=== PATIENT | male | born 1935 | race Caucasian/White ===

== ENCOUNTER 2021-07-09 10:25 | Emergency (ER) | payer MEDICARE ==
[~2021-07-09] VITALS: Ht 180.3 cm; Wt 81.8 kg
[~2021-07-09 10:25] MED LIST: AMOX500T PO; ANTACHW5 PO; ASPI81TA7 PO; BISAC5TA PO; COUM7.5T PO; GAS180CA7 PO; LASI40TA PO; PROT1TAB2 PO; TYLE325T5 PO; ZEST2.5T3 PO
[2021-07-09] MEDS ORDERED: WARF-23 (10:36)
[2021-07-09] MEDS ORDERED: CARV6.25 (10:36)
[2021-07-09] MEDS ORDERED: PRED20TA PO (13:49)
[2021-07-09 14:16] VITALS: BP 140/96
== END 2021-07-09 14:40 | disposition home or self-care (01) ==
LOC: M ED 10:25 → EDBD 10:25 → M ED 14:40
DX: I82.502 Chronic embolism and thrombosis of unspecified deep veins of left lower extremity (principal); I50.9 Heart failure, unspecified; F33.9 Major depressive disorder, recurrent, unspecified; K21.9 Gastro-esophageal reflux disease without esophagitis; Z86.711 Personal history of pulmonary embolism; Z79.899 Other long term (current) drug therapy; Z79.01 Long term (current) use of anticoagulants

== ENCOUNTER 2021-08-28 10:15 | Emergency (ER) | payer MEDICARE ==
[~2021-08-28] VITALS: Ht 180.3 cm; Wt 81.8 kg
[~2021-08-28 10:15] MED LIST changes: +CARV6.25; +PRED20TA PO; +WARF-23
[2021-08-28] MEDS ORDERED: FURO40TA2 (10:39)
[2021-08-28] MEDS ORDERED: ACETAMINOPHEN TAB 650MG DOSE (2X325MG) PO ONE (15:15)
[2021-08-28 18:11] VITALS: BP 116/70
== END 2021-08-28 18:36 | disposition home or self-care (01) ==
LOC: M ED 10:15
DX: I82.5Z2 Chronic embolism and thrombosis of unspecified deep veins of left distal lower extremity (principal); I73.9 Peripheral vascular disease, unspecified; Z86.711 Personal history of pulmonary embolism; Z79.899 Other long term (current) drug therapy; Z79.01 Long term (current) use of anticoagulants

== ENCOUNTER 2021-09-13 16:22 | Inpatient (IN) | payer MEDICARE ==
[~2021-09-13] VITALS: Ht 180.3 cm; Wt 90.5 kg
[~2021-09-13 16:22] MED LIST changes: -CARV6.25; +CARV6.25 PO; +FURO40TA2 PO; -WARF-23; +WARF-23 PO
[2021-09-13] MEDS ORDERED: NS 2,520 ML in IV 1 EA IV ONE (16:55)
[2021-09-13 17:24] LABS: BASO % 0.2 % (0.0-1.0); EOS # 0.1 10^3/uL (0.0-0.5); EOS % 0.3 % (0.0-3.0); HEMATOCRIT 38.3 % (42.0-52.0); HEMOGLOBIN 12.3 g/dl (13.5-17.5); LYMPH # 0.4 10^3/uL (1.5-5.0); LYMPH % 1.7 % (24.0-44.0); MEAN CORPUSCULAR HEMOGLOBIN 29.7 pg (27.0-33.0); MEAN CORPUSCULAR HGB CONC 32.1 g/dl (32.0-36.5); MEAN CORPUSCULAR VOLUME 92.5 fl (80.0-96.0); MONO # 1.5 10^3/uL (0.0-0.8); MONO % 5.8 % (2.0-8.0); NEUTROPHILS # 23.9 10^3/uL (1.5-8.5); NEUTROPHILS % 91.2 % (36.0-66.0); PLATELET COUNT, AUTOMATED 184 10^3/uL (150-450); RED BLOOD COUNT 4.14 10^6/uL (4.30-6.10); WHITE BLOOD COUNT 26.2 10^3/uL (4.0-10.0)
[2021-09-13] MEDS: COMBIVENT RESPIMAT 100-20MCG INHALER 4GM INH SCH ×3 (17:25→17:50)
[2021-09-13 17:48] LABS: ABG BASE EXCESS 5.2 (-2.0-2.0); ABG HCO3 28.3 MEQ/L (22.0-26.0); ABG O2 SATURATION 97.4 % (95.0-99.0); ABG PARTIAL PRESSURE CO2 36.5 mmHg (35.0-45.0); ABG PARTIAL PRESSURE O2 89.3 mmHg (75.0-100.0); ABG STANDARD HCO3 29.2 MEQ/L (22.0-26.0); ABG TOTAL CO2 29.5 MEQ/L (23.0-31.0); ABG pH (ARTERIAL) 7.508 UNITS (7.350-7.450)
[2021-09-13 17:52] LABS: CK-MB VALUE MASS 1.2 NG/ML (<3.6); MB/CK RELATIVE INDEX 3.64 (< OR =4)
[2021-09-13 17:58] LABS: ALBUMIN 2.6 GM/DL (3.2-5.2); BILIRUBIN,DIRECT 1.4 MG/DL (0.0-0.2); BILIRUBIN,TOTAL 3.2 MG/DL (0.2-1.0); THYROID STIMULATING HORMONE 3.56 uIU/ML (0.358-3.740); THYROXINE (T4) 6.4 UG/DL (4.5-12.0); TOTAL PROTEIN 5.7 GM/DL (6.4-8.2)
[2021-09-13] MEDS ORDERED: cefTRIAXone SOD 2 GM in D5W MINI-BAG PLUS 50 ML IV ONE (18:00)
[2021-09-13 18:10] LABS: RSV AMPLIFICATION NEGATIVE (NEGATIVE)
[2021-09-13] MEDS ORDERED: dexameTHASONE 20MG/5ML VIAL (J1100 PER 1MG) IV ONE (18:25)
[2021-09-13 19:11] LABS: CK-MB VALUE MASS < 1.0 NG/ML (<3.6); CPK CREATINE PHOSPHOKINASE 639 U/L (39-308); MB/CK RELATIVE INDEX 0.16 (< OR =4)
[2021-09-13] MEDS ORDERED: WARF-23 PO (19:34)
[2021-09-13] MEDS ORDERED: HOME MED LIST COMPLETE! XX SCH (19:35)
[2021-09-13] MEDS ORDERED: ENOXAPARIN 100MG/1ML SYRINGE (J1650 PER 10MG) SC SCH (20:40)
[2021-09-13] MEDS ORDERED: DOXYCYCLINE HYCLATE 100MG TABLET PO SCH (21:00)
[2021-09-13 22:30] VITALS: BP 108/57; O2SAT 95
[2021-09-13] MEDS: CARVedilol 6.25 MG TAB PO SCH (22:47)
[2021-09-14] VITALS (13 sets, daily range): BP systolic 84–140; BP diastolic 52–78; O2SAT 93–98
[2021-09-14] MEDS ORDERED: REMDESIVIR 200 MG in NS 250 ML IV ONE ×2
[2021-09-14] MEDS ORDERED: REMDESIVIR 100 MG in NS 250 ML IV SCH ×2
[2021-09-14] MEDS: guaiFENesin 200 MG TAB PO SCH ×4 (00:10→12:07)
[2021-09-14 01:02] LABS: CREATININE FOR GFR 1.5 MG/DL (0.70-1.30)
[2021-09-14 01:11] LABS: CK-MB VALUE MASS 1.1 NG/ML (<3.6); MB/CK RELATIVE INDEX 4.07 (< OR =4)
[2021-09-14 01:19] LABS: ALBUMIN 2.1 GM/DL (3.2-5.2); BILIRUBIN,DIRECT 1.2 MG/DL (0.0-0.2); BILIRUBIN,TOTAL 2.1 MG/DL (0.2-1.0); C REACTIVE PROTEIN QUANTITATIV 15.3 MG/DL (0.00-0.30); CALCIUM LEVEL 7.3 MG/DL (8.8-10.2); CREATININE FOR GFR 1.48 MG/DL (0.70-1.30); GLOMERULAR FILTRATION RATE 47.8 (>35); POTASSIUM SERUM 3.7 MEQ/L (3.5-5.1); TOTAL PROTEIN 4.6 GM/DL (6.4-8.2)
[2021-09-14 01:20] LABS: PARTIAL THROMBOPLASTIN TIME 111.8 SECONDS (25.9-37.0)
[2021-09-14 01:50] LABS: PROTHROMBIN TIME 67.2 SECONDS (12.7-14.5)
[2021-09-14 01:52] LABS: D-DIMER QUANT 524.37 ng/ml (<500)
[2021-09-14] MEDS ORDERED: SODIUM CHLORIDE 0.9% INJ 10 ML SYR IV ONE (02:00)
[2021-09-14 02:04] LABS: INR 8.1
[2021-09-14] MEDS ORDERED: PHYTONADIONE 5 MG TAB PO ONE (03:00)
[2021-09-14] MEDS: COMBIVENT RESPIMAT 100-20MCG INHALER 4GM INH SCH ×3 (08:00→19:23)
[2021-09-14] MEDS ORDERED: ALBUTEROL 90 MCG/ACT 8GM HFA INHALER INH PRN (08:20)
[2021-09-14] MEDS ORDERED: methylPREDNISolone 125MG 2ML VIAL IV ONE (08:20)
[2021-09-14] MEDS ORDERED: FUROSEMIDE 40MG/4ML VIAL (J1940) IV ONE (08:20)
[2021-09-14] MEDS: AZITHROMYCIN INJ 500 MG, VIAL MATE ADAPTER 1 EACH in NS 250 ML IV SCH (08:35)
[2021-09-14] MEDS: CARVedilol 6.25 MG TAB PO SCH ×2 (08:37→20:53)
[2021-09-14 08:56] LABS: BILIRUBIN,TOTAL 1.4 MG/DL (0.2-1.0); CALCIUM LEVEL 7.8 MG/DL (8.8-10.2); CREATININE FOR GFR 1.25 MG/DL (0.70-1.30); POTASSIUM SERUM 3.7 MEQ/L (3.5-5.1); TOTAL PROTEIN 4.6 GM/DL (6.4-8.2)
[2021-09-14] MEDS ORDERED: dexameTHASONE 4 MG/ML 1ML VIAL (J1100 PER 1MG) IV SCH (09:00)
[2021-09-14] MEDS ORDERED: DOXYCYCLINE HYCLATE 100MG TABLET PO SCH (09:00)
[2021-09-14] MEDS ORDERED: BARICITINIB 2MG TABLET (OLUMIANT) FOR EUA PO SCH ×2 (09:00)
[2021-09-14] MEDS ORDERED: FUROSEMIDE 40 MG TAB PO SCH (09:00)
[2021-09-14 09:35] LABS: HEMATOCRIT 37.1 % (42.0-52.0); HEMOGLOBIN 11.8 g/dl (13.5-17.5); LYMPH # 0.6 10^3/uL (1.5-5.0); LYMPH % 5.5 % (24.0-44.0); MEAN CORPUSCULAR HEMOGLOBIN 29.5 pg (27.0-33.0); MEAN CORPUSCULAR HGB CONC 31.8 g/dl (32.0-36.5); MEAN CORPUSCULAR VOLUME 92.8 fl (80.0-96.0); MONO # 0.4 10^3/uL (0.0-0.8); MONO % 3.5 % (2.0-8.0); NEUTROPHILS # 10.5 10^3/uL (1.5-8.5); NEUTROPHILS % 90.6 % (36.0-66.0); PLATELET COUNT, AUTOMATED 166 10^3/uL (150-450); WHITE BLOOD COUNT 11.6 10^3/uL (4.0-10.0)
[2021-09-14] MEDS: BARICITINIB 2MG TABLET (OLUMIANT) FOR EUA PO SCH (09:41)
[2021-09-14 10:03] LABS: PROTHROMBIN TIME 60.8 SECONDS (12.7-14.5)
[2021-09-14 10:13] LABS: INR 7.11
[2021-09-14] MEDS ORDERED: FUROSEMIDE 40MG/4ML VIAL (J1940) IV SCH (17:00)
[2021-09-14] MEDS ORDERED: WARFARIN SOD 2.5MG TAB PO SCH (17:00)
[2021-09-14] MEDS: methylPREDNISolone 125MG 2ML VIAL IV SCH (17:21)
[2021-09-14] MEDS: cefTRIAXone SOD 1 GM in D5W MINI-BAG PLUS 50 ML IV SCH (17:21)
[2021-09-14] MEDS ORDERED: cefTRIAXone SOD 1 GM in D5W MINI-BAG PLUS 50 ML IV SCH (18:00)
[2021-09-14 19:18] LABS: BILIRUBIN,DIRECT 0.6 MG/DL (0.0-0.2); MAGNESIUM LEVEL 1.9 MG/DL (1.8-2.4)
[2021-09-14] MEDS: guaiFENesin ER 600 MG TAB PO SCH (20:59)
[2021-09-14] MEDS ORDERED: SODIUM CHLORIDE 0.9% 1000ML IV ONE (21:20)
[2021-09-15] VITALS (24 sets, daily range): BP systolic 106–142; BP diastolic 63–80; O2SAT 90–99
[2021-09-15] MEDS: methylPREDNISolone 125MG 2ML VIAL IV SCH ×3 (00:24→17:06)
[2021-09-15] MEDS: REMDESIVIR 100 MG in NS 250 ML IV SCH (02:08)
[2021-09-15] MEDS: COMBIVENT RESPIMAT 100-20MCG INHALER 4GM INH SCH ×4 (02:56→20:04)
[2021-09-15] MEDS: SODIUM CHLORIDE 0.9% INJ 10 ML SYR IV SCH (04:21)
[2021-09-15 08:02] LABS: BASO % 0.1 % (0.0-1.0); HEMATOCRIT 38.1 % (42.0-52.0); HEMOGLOBIN 12.1 g/dl (13.5-17.5); LYMPH # 0.7 10^3/uL (1.5-5.0); LYMPH % 4.6 % (24.0-44.0); MEAN CORPUSCULAR HEMOGLOBIN 29.7 pg (27.0-33.0); MEAN CORPUSCULAR HGB CONC 31.8 g/dl (32.0-36.5); MEAN CORPUSCULAR VOLUME 93.6 fl (80.0-96.0); MONO # 0.4 10^3/uL (0.0-0.8); NEUTROPHILS # 13.5 10^3/uL (1.5-8.5); NEUTROPHILS % 91.6 % (36.0-66.0); PLATELET COUNT, AUTOMATED 160 10^3/uL (150-450); RED BLOOD COUNT 4.07 10^6/uL (4.30-6.10); WHITE BLOOD COUNT 14.7 10^3/uL (4.0-10.0)
[2021-09-15] MEDS: guaiFENesin ER 600 MG TAB PO SCH ×2 (08:19→21:38)
[2021-09-15] MEDS: BARICITINIB 2MG TABLET (OLUMIANT) FOR EUA PO SCH (08:19)
[2021-09-15] MEDS: AZITHROMYCIN INJ 500 MG, VIAL MATE ADAPTER 1 EACH in NS 250 ML IV SCH (08:20)
[2021-09-15 08:35] LABS: ALBUMIN 2.3 GM/DL (3.2-5.2); BILIRUBIN,DIRECT 0.6 MG/DL (0.0-0.2); BILIRUBIN,TOTAL 1.1 MG/DL (0.2-1.0); CALCIUM LEVEL 8.1 MG/DL (8.8-10.2); CREATININE FOR GFR 1.48 MG/DL (0.70-1.30); GLOMERULAR FILTRATION RATE 47.8 (>35); MAGNESIUM LEVEL 2.1 MG/DL (1.8-2.4); POTASSIUM SERUM 3.8 MEQ/L (3.5-5.1); TOTAL PROTEIN 5.3 GM/DL (6.4-8.2)
[2021-09-15 08:43] LABS: INR 3.19
[2021-09-15 08:44] LABS: PARTIAL THROMBOPLASTIN TIME 61.9 SECONDS (25.9-37.0)
[2021-09-15] MEDS: cefTRIAXone SOD 1 GM in D5W MINI-BAG PLUS 50 ML IV SCH (17:06)
[2021-09-16] VITALS (16 sets, daily range): BP systolic 110–133; BP diastolic 75–88; O2SAT 93–97
[2021-09-16] MEDS: methylPREDNISolone 125MG 2ML VIAL IV SCH ×3 (00:46→17:14)
[2021-09-16] MEDS: REMDESIVIR 100 MG in NS 250 ML IV SCH (00:46)
[2021-09-16] MEDS: COMBIVENT RESPIMAT 100-20MCG INHALER 4GM INH SCH ×4 (02:00→19:58)
[2021-09-16] MEDS: SODIUM CHLORIDE 0.9% INJ 10 ML SYR IV SCH (02:40)
[2021-09-16 07:33] LABS: BASO % 0.2 % (0.0-1.0); HEMATOCRIT 34.6 % (42.0-52.0); HEMOGLOBIN 11.1 g/dl (13.5-17.5); LYMPH # 0.6 10^3/uL (1.5-5.0); MEAN CORPUSCULAR HEMOGLOBIN 29.4 pg (27.0-33.0); MEAN CORPUSCULAR HGB CONC 32.1 g/dl (32.0-36.5); MEAN CORPUSCULAR VOLUME 91.8 fl (80.0-96.0); MONO # 0.3 10^3/uL (0.0-0.8); MONO % 2.6 % (2.0-8.0); NEUTROPHILS # 11.1 10^3/uL (1.5-8.5); NEUTROPHILS % 91.5 % (36.0-66.0); PLATELET COUNT, AUTOMATED 210 10^3/uL (150-450); RED BLOOD COUNT 3.77 10^6/uL (4.30-6.10); WHITE BLOOD COUNT 12.1 10^3/uL (4.0-10.0)
[2021-09-16 07:41] LABS: INR 2.67; PROTHROMBIN TIME 28.8 SECONDS (12.7-14.5)
[2021-09-16 07:57] LABS: BILIRUBIN,TOTAL 0.9 MG/DL (0.2-1.0); CALCIUM LEVEL 7.8 MG/DL (8.8-10.2); CREATININE FOR GFR 1.58 MG/DL (0.70-1.30); GLOMERULAR FILTRATION RATE 44.3 (>35); MAGNESIUM LEVEL 2.3 MG/DL (1.8-2.4); POTASSIUM SERUM 3.8 MEQ/L (3.5-5.1)
[2021-09-16] MEDS: BARICITINIB 2MG TABLET (OLUMIANT) FOR EUA PO SCH (09:28)
[2021-09-16] MEDS: guaiFENesin ER 600 MG TAB PO SCH ×2 (09:28→20:02)
[2021-09-16] MEDS: AZITHROMYCIN INJ 500 MG, VIAL MATE ADAPTER 1 EACH in NS 250 ML IV SCH (09:29)
[2021-09-16] MEDS ORDERED: FUROSEMIDE 40MG/4ML VIAL (J1940) IV SCH (17:00)
[2021-09-16] MEDS: cefTRIAXone SOD 1 GM in D5W MINI-BAG PLUS 50 ML IV SCH (17:13)
[2021-09-16] MEDS: WARFARIN SOD 3MG TAB PO SCH (20:02)
[2021-09-17] VITALS (11 sets, daily range): BP systolic 108–140; BP diastolic 72–88; O2SAT 89–94
[2021-09-17] MEDS: REMDESIVIR 100 MG in NS 250 ML IV SCH (01:05)
[2021-09-17] MEDS: methylPREDNISolone 125MG 2ML VIAL IV SCH ×3 (01:09→17:14)
[2021-09-17] MEDS: COMBIVENT RESPIMAT 100-20MCG INHALER 4GM INH SCH ×4 (01:11→19:42)
[2021-09-17] MEDS: SODIUM CHLORIDE 0.9% INJ 10 ML SYR IV SCH (02:49)
[2021-09-17 06:44] LABS: BASO % 0.1 % (0.0-1.0); HEMATOCRIT 35.1 % (42.0-52.0); HEMOGLOBIN 11.6 g/dl (13.5-17.5); LYMPH # 0.5 10^3/uL (1.5-5.0); MEAN CORPUSCULAR HEMOGLOBIN 30.3 pg (27.0-33.0); MEAN CORPUSCULAR VOLUME 91.6 fl (80.0-96.0); MONO # 0.3 10^3/uL (0.0-0.8); MONO % 3.4 % (2.0-8.0); NEUTROPHILS # 8.6 10^3/uL (1.5-8.5); NEUTROPHILS % 90.6 % (36.0-66.0); PLATELET COUNT, AUTOMATED 222 10^3/uL (150-450); RED BLOOD COUNT 3.83 10^6/uL (4.30-6.10); WHITE BLOOD COUNT 9.5 10^3/uL (4.0-10.0)
[2021-09-17 06:55] LABS: INR 2.53; PROTHROMBIN TIME 27.6 SECONDS (12.7-14.5)
[2021-09-17 07:13] LABS: BILIRUBIN,DIRECT 0.3 MG/DL (0.0-0.2); CALCIUM LEVEL 7.8 MG/DL (8.8-10.2); CREATININE FOR GFR 1.53 MG/DL (0.70-1.30); MAGNESIUM LEVEL 2.3 MG/DL (1.8-2.4); POTASSIUM SERUM 3.8 MEQ/L (3.5-5.1); TOTAL PROTEIN 5.1 GM/DL (6.4-8.2)
[2021-09-17] MEDS: FUROSEMIDE 100MG/10ML VIAL (J1940) IV SCH ×2 (08:58→17:14)
[2021-09-17] MEDS: BARICITINIB 2MG TABLET (OLUMIANT) FOR EUA PO SCH (09:00)
[2021-09-17] MEDS: AZITHROMYCIN INJ 500 MG, VIAL MATE ADAPTER 1 EACH in NS 250 ML IV SCH (09:00)
[2021-09-17] MEDS: guaiFENesin ER 600 MG TAB PO SCH ×2 (09:00→19:48)
[2021-09-17] MEDS: cefTRIAXone SOD 1 GM in D5W MINI-BAG PLUS 50 ML IV SCH (17:17)
[2021-09-17] MEDS: WARFARIN SOD 3MG TAB PO SCH (17:17)
[2021-09-17] MEDS: TAMSULOSIN 0.4 MG CAP PO SCH (19:47)
[2021-09-17 21:07] LABS: BODY FLUID CULTURE Not indicated. (.); LEGIONELLA ANTIGEN URINE Negative (Negative); ORGANISM ID Not indicated. (.); SPECIMEN SOURCE Urine (.); URINE STREP PNEUMONIAE ANTIGEN Negative (Negative)
[2021-09-18] VITALS: BP 113/73
[2021-09-18] MEDS: methylPREDNISolone 125MG 2ML VIAL IV SCH ×3 (00:42→16:46)
[2021-09-18] MEDS: REMDESIVIR 100 MG in NS 250 ML IV SCH (00:43)
[2021-09-18] MEDS: COMBIVENT RESPIMAT 100-20MCG INHALER 4GM INH SCH ×4 (01:04→19:27)
[2021-09-18 03:59] VITALS: BP 121/94
[2021-09-18 08:00] VITALS: BP 134/91
[2021-09-18] MEDS: guaiFENesin ER 600 MG TAB PO SCH ×2 (08:48→19:34)
[2021-09-18] MEDS: FUROSEMIDE 100MG/10ML VIAL (J1940) IV SCH ×2 (08:49→16:46)
[2021-09-18] MEDS: AZITHROMYCIN INJ 500 MG, VIAL MATE ADAPTER 1 EACH in NS 250 ML IV SCH (08:49)
[2021-09-18] MEDS: BARICITINIB 2MG TABLET (OLUMIANT) FOR EUA PO SCH (08:49)
[2021-09-18 09:25] LABS: BASO % 0.2 % (0.0-1.0); HEMATOCRIT 38.5 % (42.0-52.0); HEMOGLOBIN 12.5 g/dl (13.5-17.5); LYMPH # 0.5 10^3/uL (1.5-5.0); LYMPH % 5.2 % (24.0-44.0); MEAN CORPUSCULAR HEMOGLOBIN 29.7 pg (27.0-33.0); MEAN CORPUSCULAR HGB CONC 32.5 g/dl (32.0-36.5); MEAN CORPUSCULAR VOLUME 91.4 fl (80.0-96.0); MONO # 0.4 10^3/uL (0.0-0.8); MONO % 3.5 % (2.0-8.0); NEUTROPHILS # 9.1 10^3/uL (1.5-8.5); NEUTROPHILS % 89.9 % (36.0-66.0); PLATELET COUNT, AUTOMATED 253 10^3/uL (150-450); RED BLOOD COUNT 4.21 10^6/uL (4.30-6.10); WHITE BLOOD COUNT 10.1 10^3/uL (4.0-10.0)
[2021-09-18 09:35] LABS: INR 2.77; PROTHROMBIN TIME 29.6 SECONDS (12.7-14.5)
[2021-09-18 09:49] LABS: ALBUMIN 2.4 GM/DL (3.2-5.2); BILIRUBIN,TOTAL 0.8 MG/DL (0.2-1.0); CALCIUM LEVEL 8.3 MG/DL (8.8-10.2); CREATININE FOR GFR 1.5 MG/DL (0.70-1.30); POTASSIUM SERUM 3.8 MEQ/L (3.5-5.1); TOTAL PROTEIN 5.6 GM/DL (6.4-8.2)
[2021-09-18 11:59] VITALS: BP 107/58
[2021-09-18] MEDS: DOXYCYCLINE HYCLATE 100MG TABLET PO SCH ×2 (14:41→19:34)
[2021-09-18] MEDS: CEFDINIR 300 MG CAP (OMNICEF) PO SCH ×2 (14:41→19:34)
[2021-09-18 16:00] VITALS: BP 113/72
[2021-09-18] MEDS: WARFARIN SOD 3MG TAB PO SCH (16:45)
[2021-09-18] MEDS ORDERED: WARFARIN SOD 5MG TAB PO SCH (17:00)
[2021-09-18] MEDS: TAMSULOSIN 0.4 MG CAP PO SCH (19:34)
[2021-09-18 20:00] VITALS: BP 106/75
[2021-09-19 00:39] VITALS: BP 109/78
[2021-09-19] MEDS: methylPREDNISolone 125MG 2ML VIAL IV SCH ×4 (00:39→23:19)
[2021-09-19] MEDS: COMBIVENT RESPIMAT 100-20MCG INHALER 4GM INH SCH ×4 (00:50→19:25)
[2021-09-19 04:00] VITALS: BP 116/78
[2021-09-19 06:02] LABS: ALBUMIN 2.2 GM/DL (3.2-5.2); BILIRUBIN,DIRECT 0.4 MG/DL (0.0-0.2); BILIRUBIN,TOTAL 0.9 MG/DL (0.2-1.0); TOTAL PROTEIN 4.8 GM/DL (6.4-8.2)
[2021-09-19 08:00] VITALS: BP 125/82
[2021-09-19 08:14] LABS: BASO % 0.1 % (0.0-1.0); HEMATOCRIT 36.5 % (42.0-52.0); HEMOGLOBIN 12.2 g/dl (13.5-17.5); LYMPH # 0.4 10^3/uL (1.5-5.0); LYMPH % 4.6 % (24.0-44.0); MEAN CORPUSCULAR HEMOGLOBIN 29.8 pg (27.0-33.0); MEAN CORPUSCULAR HGB CONC 33.4 g/dl (32.0-36.5); MONO # 0.2 10^3/uL (0.0-0.8); MONO % 2.6 % (2.0-8.0); NEUTROPHILS # 8.3 10^3/uL (1.5-8.5); NEUTROPHILS % 91.1 % (36.0-66.0); PLATELET COUNT, AUTOMATED 221 10^3/uL (150-450); WHITE BLOOD COUNT 9.1 10^3/uL (4.0-10.0)
[2021-09-19 08:54] LABS: CALCIUM LEVEL 7.9 MG/DL (8.8-10.2); CREATININE FOR GFR 1.42 MG/DL (0.70-1.30); GLOMERULAR FILTRATION RATE 50.1 (>35); MAGNESIUM LEVEL 2.2 MG/DL (1.8-2.4); POTASSIUM SERUM 4.1 MEQ/L (3.5-5.1)
[2021-09-19] MEDS: FUROSEMIDE 100MG/10ML VIAL (J1940) IV SCH ×2 (09:58→16:54)
[2021-09-19] MEDS: guaiFENesin ER 600 MG TAB PO SCH ×2 (09:59→20:04)
[2021-09-19] MEDS: CEFDINIR 300 MG CAP (OMNICEF) PO SCH ×2 (09:59→20:04)
[2021-09-19] MEDS: BARICITINIB 2MG TABLET (OLUMIANT) FOR EUA PO SCH (09:59)
[2021-09-19] MEDS: DOXYCYCLINE HYCLATE 100MG TABLET PO SCH ×2 (09:59→20:04)
[2021-09-19 12:00] VITALS: BP 102/75
[2021-09-19 16:00] VITALS: BP 104/74
[2021-09-19] MEDS: WARFARIN SOD 3MG TAB PO SCH (16:55)
[2021-09-19] MEDS: TAMSULOSIN 0.4 MG CAP PO SCH (20:04)
[2021-09-19 22:00] VITALS: BP 96/66
[2021-09-20] VITALS (7 sets, daily range): BP systolic 104–143; BP diastolic 60–89
[2021-09-20] MEDS: COMBIVENT RESPIMAT 100-20MCG INHALER 4GM INH SCH ×4 (02:00→19:37)
[2021-09-20 06:20] LABS: HEMOGLOBIN 12.3 g/dl (13.5-17.5); MEAN CORPUSCULAR HEMOGLOBIN 29.6 pg (27.0-33.0); MEAN CORPUSCULAR HGB CONC 33.2 g/dl (32.0-36.5); MEAN CORPUSCULAR VOLUME 88.9 fl (80.0-96.0); PLATELET COUNT, AUTOMATED 231 10^3/uL (150-450); RED BLOOD COUNT 4.16 10^6/uL (4.30-6.10)
[2021-09-20 06:38] LABS: CALCIUM LEVEL 7.7 MG/DL (8.8-10.2); CREATININE FOR GFR 1.59 MG/DL (0.70-1.30); POTASSIUM SERUM 4.2 MEQ/L (3.5-5.1)
[2021-09-20] MEDS: methylPREDNISolone 125MG 2ML VIAL IV SCH ×3 (08:45→23:59)
[2021-09-20] MEDS: guaiFENesin ER 600 MG TAB PO SCH ×2 (08:45→20:40)
[2021-09-20] MEDS: BARICITINIB 2MG TABLET (OLUMIANT) FOR EUA PO SCH (08:45)
[2021-09-20] MEDS: CEFDINIR 300 MG CAP (OMNICEF) PO SCH ×2 (08:45→20:40)
[2021-09-20] MEDS: DOXYCYCLINE HYCLATE 100MG TABLET PO SCH ×2 (08:46→20:40)
[2021-09-20] MEDS: FUROSEMIDE 100MG/10ML VIAL (J1940) IV SCH (08:47)
[2021-09-20] MEDS: FUROSEMIDE 40MG/4ML VIAL (J1940) IV SCH (16:45)
[2021-09-20] MEDS: WARFARIN SOD 3MG TAB PO SCH (16:46)
[2021-09-20] MEDS: TAMSULOSIN 0.4 MG CAP PO SCH (20:40)
[2021-09-21] MEDS: COMBIVENT RESPIMAT 100-20MCG INHALER 4GM INH SCH ×4 (01:26→19:25)
[2021-09-21 02:36] VITALS: O2SAT 95
[2021-09-21 04:45] VITALS: BP 108/62
[2021-09-21] MEDS: methylPREDNISolone 125MG 2ML VIAL IV SCH ×2 (09:00→16:29)
[2021-09-21] MEDS: guaiFENesin ER 600 MG TAB PO SCH ×2 (09:00→20:31)
[2021-09-21] MEDS: BARICITINIB 2MG TABLET (OLUMIANT) FOR EUA PO SCH (09:01)
[2021-09-21] MEDS: FUROSEMIDE 40MG/4ML VIAL (J1940) IV SCH (09:01)
[2021-09-21 10:00] VITALS: BP 102/57
[2021-09-21 11:04] LABS: HEMATOCRIT 42.1 % (42.0-52.0); HEMOGLOBIN 13.7 g/dl (13.5-17.5); MEAN CORPUSCULAR HEMOGLOBIN 29.7 pg (27.0-33.0); MEAN CORPUSCULAR HGB CONC 32.5 g/dl (32.0-36.5); MEAN CORPUSCULAR VOLUME 91.3 fl (80.0-96.0); PLATELET COUNT, AUTOMATED 237 10^3/uL (150-450); RED BLOOD COUNT 4.61 10^6/uL (4.30-6.10); WHITE BLOOD COUNT 11.6 10^3/uL (4.0-10.0)
[2021-09-21 11:15] LABS: INR 3.19
[2021-09-21 11:38] LABS: CALCIUM LEVEL 7.6 MG/DL (8.8-10.2); CREATININE FOR GFR 1.69 MG/DL (0.70-1.30); POTASSIUM SERUM 4.7 MEQ/L (3.5-5.1)
[2021-09-21 20:00] VITALS: BP 106/72
[2021-09-21] MEDS: TAMSULOSIN 0.4 MG CAP PO SCH (20:31)
[2021-09-22] VITALS (9 sets, daily range): BP systolic 100–118; BP diastolic 66–80; O2SAT 94
[2021-09-22] MEDS: methylPREDNISolone 125MG 2ML VIAL IV SCH ×3 (00:11→16:23)
[2021-09-22] MEDS: COMBIVENT RESPIMAT 100-20MCG INHALER 4GM INH SCH ×4 (02:00→20:01)
[2021-09-22 08:44] LABS: HEMATOCRIT 39.5 % (42.0-52.0); HEMOGLOBIN 12.9 g/dl (13.5-17.5); MEAN CORPUSCULAR HEMOGLOBIN 29.7 pg (27.0-33.0); MEAN CORPUSCULAR HGB CONC 32.7 g/dl (32.0-36.5); PLATELET COUNT, AUTOMATED 234 10^3/uL (150-450); RED BLOOD COUNT 4.34 10^6/uL (4.30-6.10); WHITE BLOOD COUNT 11.6 10^3/uL (4.0-10.0)
[2021-09-22] MEDS: BARICITINIB 2MG TABLET (OLUMIANT) FOR EUA PO SCH (08:53)
[2021-09-22] MEDS: guaiFENesin ER 600 MG TAB PO SCH ×2 (08:54→20:55)
[2021-09-22 09:08] LABS: CALCIUM LEVEL 7.7 MG/DL (8.8-10.2); CREATININE FOR GFR 1.39 MG/DL (0.70-1.30); GLOMERULAR FILTRATION RATE 51.3 (>35); POTASSIUM SERUM 4.5 MEQ/L (3.5-5.1)
[2021-09-22 09:14] LABS: INR 3.82; PROTHROMBIN TIME 37.8 SECONDS (12.7-14.5)
[2021-09-22] MEDS ORDERED: WARFARIN SOD 2.5MG TAB PO SCH (17:00)
[2021-09-22] MEDS: TAMSULOSIN 0.4 MG CAP PO SCH (20:55)
[2021-09-23] MEDS: methylPREDNISolone 125MG 2ML VIAL IV SCH ×2 (00:18→08:49)
[2021-09-23] MEDS: COMBIVENT RESPIMAT 100-20MCG INHALER 4GM INH SCH ×4 (01:04→20:30)
[2021-09-23 04:45] VITALS: BP 110/74
[2021-09-23 07:12] LABS: HEMATOCRIT 35.2 % (42.0-52.0); HEMOGLOBIN 11.7 g/dl (13.5-17.5); MEAN CORPUSCULAR HEMOGLOBIN 29.9 pg (27.0-33.0); MEAN CORPUSCULAR HGB CONC 33.2 g/dl (32.0-36.5); PLATELET COUNT, AUTOMATED 202 10^3/uL (150-450); RED BLOOD COUNT 3.91 10^6/uL (4.30-6.10); WHITE BLOOD COUNT 10.9 10^3/uL (4.0-10.0)
[2021-09-23 07:28] LABS: CALCIUM LEVEL 7.6 MG/DL (8.8-10.2); CREATININE FOR GFR 1.53 MG/DL (0.70-1.30); POTASSIUM SERUM 4.6 MEQ/L (3.5-5.1)
[2021-09-23 07:30] LABS: INR 3.53; PROTHROMBIN TIME 35.6 SECONDS (12.7-14.5)
[2021-09-23 08:00] VITALS: BP 119/82
[2021-09-23] MEDS: guaiFENesin ER 600 MG TAB PO SCH ×2 (08:48→21:13)
[2021-09-23] MEDS: BARICITINIB 2MG TABLET (OLUMIANT) FOR EUA PO SCH (08:49)
[2021-09-23 11:59] VITALS: BP 120/76
[2021-09-23] MEDS: FUROSEMIDE 40 MG TAB PO SCH (16:35)
[2021-09-23] MEDS: TAMSULOSIN 0.4 MG CAP PO SCH (21:13)
[2021-09-24] MEDS: COMBIVENT RESPIMAT 100-20MCG INHALER 4GM INH SCH ×4 (01:00→20:22)
[2021-09-24 04:00] VITALS: BP_SYST 110; BP_SYST 120; BP_DIAS 76; BP_DIAS 77
[2021-09-24 06:28] LABS: HEMATOCRIT 37.5 % (42.0-52.0); HEMOGLOBIN 12.4 g/dl (13.5-17.5); MEAN CORPUSCULAR HGB CONC 33.1 g/dl (32.0-36.5); MEAN CORPUSCULAR VOLUME 90.6 fl (80.0-96.0); PLATELET COUNT, AUTOMATED 209 10^3/uL (150-450); RED BLOOD COUNT 4.14 10^6/uL (4.30-6.10); WHITE BLOOD COUNT 14.1 10^3/uL (4.0-10.0)
[2021-09-24 06:47] LABS: INR 3.51; PROTHROMBIN TIME 35.5 SECONDS (12.7-14.5)
[2021-09-24 06:52] LABS: CALCIUM LEVEL 7.9 MG/DL (8.8-10.2); CREATININE FOR GFR 1.44 MG/DL (0.70-1.30); GLOMERULAR FILTRATION RATE 49.3 (>35); POTASSIUM SERUM 4.7 MEQ/L (3.5-5.1)
[2021-09-24] MEDS: FUROSEMIDE 40 MG TAB PO SCH ×2 (09:56→17:20)
[2021-09-24] MEDS: guaiFENesin ER 600 MG TAB PO SCH ×2 (09:56→20:58)
[2021-09-24] MEDS: BARICITINIB 2MG TABLET (OLUMIANT) FOR EUA PO SCH (09:56)
[2021-09-24] MEDS: predniSONE 20 MG TAB PO SCH (09:56)
[2021-09-24] MEDS: TAMSULOSIN 0.4 MG CAP PO SCH (20:58)
[2021-09-25] MEDS: COMBIVENT RESPIMAT 100-20MCG INHALER 4GM INH SCH ×4 (02:00→20:07)
[2021-09-25 05:05] VITALS: BP 117/88
[2021-09-25 06:54] LABS: HEMATOCRIT 37.8 % (42.0-52.0); HEMOGLOBIN 12.6 g/dl (13.5-17.5); MEAN CORPUSCULAR HEMOGLOBIN 29.3 pg (27.0-33.0); MEAN CORPUSCULAR HGB CONC 33.3 g/dl (32.0-36.5); MEAN CORPUSCULAR VOLUME 87.9 fl (80.0-96.0); PLATELET COUNT, AUTOMATED 242 10^3/uL (150-450); WHITE BLOOD COUNT 17.1 10^3/uL (4.0-10.0)
[2021-09-25 07:12] LABS: CALCIUM LEVEL 7.6 MG/DL (8.8-10.2); CREATININE FOR GFR 1.47 MG/DL (0.70-1.30); GLOMERULAR FILTRATION RATE 48.1 (>35)
[2021-09-25] MEDS: BARICITINIB 2MG TABLET (OLUMIANT) FOR EUA PO SCH (08:52)
[2021-09-25] MEDS: guaiFENesin ER 600 MG TAB PO SCH ×2 (08:53→21:22)
[2021-09-25] MEDS: predniSONE 20 MG TAB PO SCH (08:53)
[2021-09-25] MEDS: FUROSEMIDE 40 MG TAB PO SCH ×2 (08:53→17:34)
[2021-09-25] MEDS ORDERED: WARFARIN SOD 2MG TAB PO SCH (17:00)
[2021-09-25] MEDS: TAMSULOSIN 0.4 MG CAP PO SCH (21:22)
[2021-09-26] MEDS: COMBIVENT RESPIMAT 100-20MCG INHALER 4GM INH SCH ×4 (01:02→19:15)
[2021-09-26 04:00] VITALS: BP 113/72
[2021-09-26 06:55] LABS: HEMATOCRIT 36.3 % (42.0-52.0); HEMOGLOBIN 12.4 g/dl (13.5-17.5); MEAN CORPUSCULAR HEMOGLOBIN 29.9 pg (27.0-33.0); MEAN CORPUSCULAR HGB CONC 34.2 g/dl (32.0-36.5); MEAN CORPUSCULAR VOLUME 87.5 fl (80.0-96.0); PLATELET COUNT, AUTOMATED 245 10^3/uL (150-450); RED BLOOD COUNT 4.15 10^6/uL (4.30-6.10); WHITE BLOOD COUNT 15.1 10^3/uL (4.0-10.0)
[2021-09-26 07:08] LABS: INR 2.01; PROTHROMBIN TIME 23.2 SECONDS (12.7-14.5)
[2021-09-26 07:18] LABS: CALCIUM LEVEL 7.9 MG/DL (8.8-10.2); CREATININE FOR GFR 1.33 MG/DL (0.70-1.30); POTASSIUM SERUM 4.8 MEQ/L (3.5-5.1)
[2021-09-26] MEDS: predniSONE 20 MG TAB PO SCH (09:15)
[2021-09-26] MEDS: BARICITINIB 2MG TABLET (OLUMIANT) FOR EUA PO SCH (09:15)
[2021-09-26] MEDS: guaiFENesin ER 600 MG TAB PO SCH ×2 (09:15→20:08)
[2021-09-26] MEDS: FUROSEMIDE 40 MG TAB PO SCH ×2 (09:15→16:59)
[2021-09-26] MEDS: WARFARIN SOD 2.5MG TAB PO SCH (16:59)
[2021-09-26] MEDS: TAMSULOSIN 0.4 MG CAP PO SCH (20:08)
[2021-09-27] MEDS: COMBIVENT RESPIMAT 100-20MCG INHALER 4GM INH SCH ×4 (01:37→20:43)
[2021-09-27 04:00] VITALS: BP 95/64
[2021-09-27 06:53] LABS: HEMATOCRIT 35.7 % (42.0-52.0); HEMOGLOBIN 12.1 g/dl (13.5-17.5); MEAN CORPUSCULAR HEMOGLOBIN 29.7 pg (27.0-33.0); MEAN CORPUSCULAR HGB CONC 33.9 g/dl (32.0-36.5); MEAN CORPUSCULAR VOLUME 87.5 fl (80.0-96.0); PLATELET COUNT, AUTOMATED 237 10^3/uL (150-450); RED BLOOD COUNT 4.08 10^6/uL (4.30-6.10); WHITE BLOOD COUNT 15.1 10^3/uL (4.0-10.0)
[2021-09-27 07:11] LABS: INR 2.16; PROTHROMBIN TIME 24.5 SECONDS (12.7-14.5)
[2021-09-27 07:12] LABS: PARTIAL THROMBOPLASTIN TIME 30.6 SECONDS (25.9-37.0)
[2021-09-27 07:17] LABS: ALBUMIN 2.2 GM/DL (3.2-5.2); BILIRUBIN,TOTAL 2.6 MG/DL (0.2-1.0); CALCIUM LEVEL 7.9 MG/DL (8.8-10.2); CREATININE FOR GFR 1.45 MG/DL (0.70-1.30); GLOMERULAR FILTRATION RATE 48.9 (>35); POTASSIUM SERUM 4.6 MEQ/L (3.5-5.1); TOTAL PROTEIN 4.8 GM/DL (6.4-8.2)
[2021-09-27] MEDS: predniSONE 20 MG TAB PO SCH (09:25)
[2021-09-27] MEDS: FUROSEMIDE 40 MG TAB PO SCH (09:25)
[2021-09-27] MEDS: guaiFENesin ER 600 MG TAB PO SCH ×2 (09:26→19:52)
[2021-09-27] MEDS: BARICITINIB 2MG TABLET (OLUMIANT) FOR EUA PO SCH (09:26)
[2021-09-27] MEDS: WARFARIN SOD 2.5MG TAB PO SCH (16:59)
[2021-09-27] MEDS: TAMSULOSIN 0.4 MG CAP PO SCH (19:52)
[2021-09-28] MEDS: COMBIVENT RESPIMAT 100-20MCG INHALER 4GM INH SCH ×4 (01:00→20:08)
[2021-09-28 06:02] VITALS: BP 100/55
[2021-09-28] MEDS: FUROSEMIDE 40 MG TAB PO SCH (08:26)
[2021-09-28] MEDS: predniSONE 20 MG TAB PO SCH (08:26)
[2021-09-28] MEDS: guaiFENesin ER 600 MG TAB PO SCH ×2 (08:26→19:58)
[2021-09-28 08:28] LABS: HEMATOCRIT 33.7 % (42.0-52.0); HEMOGLOBIN 11.2 g/dl (13.5-17.5); MEAN CORPUSCULAR HEMOGLOBIN 29.9 pg (27.0-33.0); MEAN CORPUSCULAR HGB CONC 33.2 g/dl (32.0-36.5); MEAN CORPUSCULAR VOLUME 89.9 fl (80.0-96.0); PLATELET COUNT, AUTOMATED 231 10^3/uL (150-450); RED BLOOD COUNT 3.75 10^6/uL (4.30-6.10); WHITE BLOOD COUNT 14.7 10^3/uL (4.0-10.0)
[2021-09-28 08:43] LABS: INR 2.65; PARTIAL THROMBOPLASTIN TIME 31.7 SECONDS (25.9-37.0); PROTHROMBIN TIME 28.6 SECONDS (12.7-14.5)
[2021-09-28 08:47] LABS: ALBUMIN 2.2 GM/DL (3.2-5.2); BILIRUBIN,TOTAL 2.1 MG/DL (0.2-1.0); CALCIUM LEVEL 7.7 MG/DL (8.8-10.2); CREATININE FOR GFR 1.44 MG/DL (0.70-1.30); GLOMERULAR FILTRATION RATE 49.3 (>35); POTASSIUM SERUM 4.6 MEQ/L (3.5-5.1); TOTAL PROTEIN 4.4 GM/DL (6.4-8.2)
[2021-09-28] MEDS: WARFARIN SOD 2.5MG TAB PO SCH (16:50)
[2021-09-28] MEDS: TAMSULOSIN 0.4 MG CAP PO SCH (19:59)
[2021-09-29] MEDS: COMBIVENT RESPIMAT 100-20MCG INHALER 4GM INH SCH ×4 (02:30→19:59)
[2021-09-29 04:41] VITALS: BP 100/62
[2021-09-29 08:25] LABS: HEMATOCRIT 33.7 % (42.0-52.0); HEMOGLOBIN 11.3 g/dl (13.5-17.5); MEAN CORPUSCULAR HEMOGLOBIN 29.6 pg (27.0-33.0); MEAN CORPUSCULAR HGB CONC 33.5 g/dl (32.0-36.5); MEAN CORPUSCULAR VOLUME 88.2 fl (80.0-96.0); PLATELET COUNT, AUTOMATED 234 10^3/uL (150-450); RED BLOOD COUNT 3.82 10^6/uL (4.30-6.10); WHITE BLOOD COUNT 16.3 10^3/uL (4.0-10.0)
[2021-09-29] MEDS: FUROSEMIDE 40 MG TAB PO SCH (08:41)
[2021-09-29] MEDS: guaiFENesin ER 600 MG TAB PO SCH ×2 (08:41→22:19)
[2021-09-29] MEDS: predniSONE 20 MG TAB PO SCH (08:41)
[2021-09-29 08:45] LABS: INR 2.53; PARTIAL THROMBOPLASTIN TIME 32.1 SECONDS (25.9-37.0); PROTHROMBIN TIME 27.6 SECONDS (12.7-14.5)
[2021-09-29 08:46] LABS: ALBUMIN 2.3 GM/DL (3.2-5.2); BILIRUBIN,TOTAL 2.3 MG/DL (0.2-1.0); CALCIUM LEVEL 7.6 MG/DL (8.8-10.2); CREATININE FOR GFR 1.33 MG/DL (0.70-1.30); POTASSIUM SERUM 4.7 MEQ/L (3.5-5.1); TOTAL PROTEIN 4.5 GM/DL (6.4-8.2)
[2021-09-29] MEDS: WARFARIN SOD 2.5MG TAB PO SCH (19:17)
[2021-09-29 20:00] VITALS: BP 98/61
[2021-09-29] MEDS: TAMSULOSIN 0.4 MG CAP PO SCH (22:20)
[2021-09-29 22:43] VITALS: BP 98/68
[2021-09-30] MEDS: COMBIVENT RESPIMAT 100-20MCG INHALER 4GM INH SCH ×4 (02:00→20:43)
[2021-09-30 03:59] VITALS: BP 92/64
[2021-09-30 04:00] VITALS: BP_SYST 80; BP_SYST 98; BP_DIAS 60
[2021-09-30 07:17] LABS: HEMATOCRIT 32.2 % (42.0-52.0); HEMOGLOBIN 10.8 g/dl (13.5-17.5); MEAN CORPUSCULAR HEMOGLOBIN 30.1 pg (27.0-33.0); MEAN CORPUSCULAR HGB CONC 33.5 g/dl (32.0-36.5); MEAN CORPUSCULAR VOLUME 89.7 fl (80.0-96.0); PLATELET COUNT, AUTOMATED 200 10^3/uL (150-450); RED BLOOD COUNT 3.59 10^6/uL (4.30-6.10); WHITE BLOOD COUNT 15.5 10^3/uL (4.0-10.0)
[2021-09-30 07:27] LABS: INR 2.5; PROTHROMBIN TIME 27.4 SECONDS (12.7-14.5)
[2021-09-30 07:28] LABS: PARTIAL THROMBOPLASTIN TIME 31.7 SECONDS (25.9-37.0)
[2021-09-30 07:54] LABS: ALBUMIN 2.2 GM/DL (3.2-5.2); BILIRUBIN,TOTAL 2.1 MG/DL (0.2-1.0); CALCIUM LEVEL 7.4 MG/DL (8.8-10.2); CREATININE FOR GFR 1.33 MG/DL (0.70-1.30); MAGNESIUM LEVEL 2.7 MG/DL (1.8-2.4); POTASSIUM SERUM 4.2 MEQ/L (3.5-5.1); TOTAL PROTEIN 4.5 GM/DL (6.4-8.2)
[2021-09-30] MEDS: FUROSEMIDE 40 MG TAB PO SCH (09:00)
[2021-09-30 09:15] VITALS: BP 94/64
[2021-09-30] MEDS: guaiFENesin ER 600 MG TAB PO SCH ×2 (09:18→20:12)
[2021-09-30] MEDS: predniSONE 20 MG TAB PO SCH (09:19)
[2021-09-30 14:00] VITALS: BP 96/62
[2021-09-30] MEDS: WARFARIN SOD 2.5MG TAB PO SCH (18:21)
[2021-09-30 20:00] VITALS: BP 102/71
[2021-09-30] MEDS: TAMSULOSIN 0.4 MG CAP PO SCH (20:12)
[2021-10-01] MEDS: COMBIVENT RESPIMAT 100-20MCG INHALER 4GM INH SCH ×2 (02:19→07:51)
[2021-10-01 05:38] VITALS: BP 107/68
[2021-10-01 06:43] LABS: HEMATOCRIT 32.2 % (42.0-52.0); HEMOGLOBIN 10.7 g/dl (13.5-17.5); MEAN CORPUSCULAR HGB CONC 33.2 g/dl (32.0-36.5); MEAN CORPUSCULAR VOLUME 90.2 fl (80.0-96.0); PLATELET COUNT, AUTOMATED 191 10^3/uL (150-450); RED BLOOD COUNT 3.57 10^6/uL (4.30-6.10); WHITE BLOOD COUNT 14.7 10^3/uL (4.0-10.0)
[2021-10-01 06:50] LABS: INR 2.58; PARTIAL THROMBOPLASTIN TIME 32.8 SECONDS (25.9-37.0)
[2021-10-01 07:13] LABS: ALBUMIN 2.1 GM/DL (3.2-5.2); CALCIUM LEVEL 7.9 MG/DL (8.8-10.2); CREATININE FOR GFR 1.29 MG/DL (0.70-1.30); POTASSIUM SERUM 4.5 MEQ/L (3.5-5.1); TOTAL PROTEIN 4.3 GM/DL (6.4-8.2)
[2021-10-01] MEDS: guaiFENesin ER 600 MG TAB PO SCH (08:29)
[2021-10-01] MEDS: FUROSEMIDE 40 MG TAB PO SCH (08:30)
[2021-10-01] MEDS ORDERED: FLOM0.4C39 PO (11:06)
[2021-10-01] MEDS ORDERED: JANT2.5T PO (11:06)
[2021-10-01] MEDS ORDERED: LASI20TA3 PO (11:06)
== END 2021-10-01 12:05 | disposition home health service (06) | DRG 871 ==
LOC: M ED 16:22 → M ED INP 21:00 → M 4MAIN 22:27
PROVIDERS: ADMIT Internal Medicine; ATTEND Internal Medicine
PROC: 3E0333Z Introduction of Anti-inflammatory into Peripheral Vein, Percutaneous Approach (ICD-10-PCS; principal; 2021-09-14)
PROC: XW033E5 Introduction of Remdesivir Anti-infective into Peripheral Vein, Percutaneous Approach, New Technology Group 5 (ICD-10-PCS; 2021-09-14)
DX: A41.89 Other specified sepsis (principal); U07.1 COVID-19; J12.82 Pneumonia due to coronavirus disease 2019; I21.A1 Myocardial infarction type 2; J15.9 Unspecified bacterial pneumonia; J96.01 Acute respiratory failure with hypoxia; I50.23 Acute on chronic systolic (congestive) heart failure; E87.2 Acidosis; N17.9 Acute kidney failure, unspecified; Z86.718 Personal history of other venous thrombosis and embolism; Z86.711 Personal history of pulmonary embolism; Z79.01 Long term (current) use of anticoagulants; D72.829 Elevated white blood cell count, unspecified; R65.20 Severe sepsis without septic shock; I27.21 Secondary pulmonary arterial hypertension; I95.9 Hypotension, unspecified; N18.30 Chronic kidney disease, stage 3 unspecified; R33.9 Retention of urine, unspecified; Z79.899 Other long term (current) drug therapy

== ENCOUNTER 2021-10-08 14:00 | Emergency (ER) | payer MEDICARE ==
[~2021-10-08] VITALS: Ht 180.3 cm; Wt 84.1 kg
[~2021-10-08 14:00] MED LIST changes: +FLOM0.4C39 PO; +JANT2.5T PO; +LASI20TA3 PO
[2021-10-08 14:01] VITALS: BP 106/79
== END 2021-10-08 14:02 | disposition left against medical advice (07) ==
LOC: M ED 14:00
DX: Z53.21 Procedure and treatment not carried out due to patient leaving prior to being seen by health care provider (principal)

== ENCOUNTER → 2021-10-30 | Outpatient (REF) | payer MEDICARE ==
[2021-10-30 12:10] LABS: BASO # 0.1 10^3/uL (0.0-0.2); BASO % 1.4 % (0.0-1.0); EOS # 0.1 10^3/uL (0.0-0.5); EOS % 0.7 % (0.0-3.0); HEMATOCRIT 34.1 % (42.0-52.0); HEMOGLOBIN 10.7 g/dl (13.5-17.5); LYMPH # 0.9 10^3/uL (1.5-5.0); LYMPH % 10.2 % (24.0-44.0); MEAN CORPUSCULAR HEMOGLOBIN 30.4 pg (27.0-33.0); MEAN CORPUSCULAR HGB CONC 31.4 g/dl (32.0-36.5); MEAN CORPUSCULAR VOLUME 96.9 fl (80.0-96.0); MONO # 1.1 10^3/uL (0.0-0.8); MONO % 12.8 % (2.0-8.0); NEUTROPHILS # 6.2 10^3/uL (1.5-8.5); NEUTROPHILS % 73.6 % (36.0-66.0); PLATELET COUNT, AUTOMATED 223 10^3/uL (150-450); RED BLOOD COUNT 3.52 10^6/uL (4.30-6.10); WHITE BLOOD COUNT 8.5 10^3/uL (4.0-10.0)
[2021-10-30 12:22] LABS: INR 1.35; PROTHROMBIN TIME 17.1 SECONDS (12.7-14.5)
[2021-10-30 12:36] LABS: ALBUMIN 2.5 GM/DL (3.2-5.2); CALCIUM LEVEL 8.7 MG/DL (8.8-10.2); CREATININE FOR GFR 1.28 MG/DL (0.70-1.30); GLOMERULAR FILTRATION RATE 56.5 (>35); POTASSIUM SERUM 4.5 MEQ/L (3.5-5.1); TOTAL PROTEIN 5.1 GM/DL (6.4-8.2)
== END ==
LOC: M LAB REF 11:42
PROVIDERS: ATTEND Family Medicine
DX: I50.9 Heart failure, unspecified (principal); Z79.01 Long term (current) use of anticoagulants

== ENCOUNTER → 2021-11-14 | Outpatient (REF) | payer MEDICARE ==
[2021-11-14 18:44] LABS: BACTERIA, URINE AUTO NEGATIVE (NEGATIVE); MUCUS, URINE SMALL (NEGATIVE); RBC, URINE AUTO 0 /HPF (0-3); SQUAMOUS EPITHELIAL CELL UR AU 1 /HPF (0-6); WBC, URINE AUTO 1 /HPF (0-3)
== END ==
LOC: M SMT 16:48
PROVIDERS: ATTEND Specialist
DX: N28.89 Other specified disorders of kidney and ureter (principal)

== ENCOUNTER → 2021-11-29 | Outpatient (CLI) | payer MEDICARE | LOC: M PLAIMG 13:38 → M PLALAB 13:38 | PROVIDERS: ATTEND Family Medicine | DX: M17.12 Unilateral primary osteoarthritis, left knee (principal); M25.562 Pain in left knee ==

== ENCOUNTER → 2022-07-31 | Outpatient (CLI) | payer MEDICARE ==
[~2022-07-31] MED LIST changes: +ALBU8.5H INH; +TORS20TA2 PO; +WARF-18 PO
== END ==
LOC: M LABSMTC 11:20
PROVIDERS: ATTEND Anesthesiology
DX: Z01.812 Encounter for preprocedural laboratory examination (principal); Z20.822 Contact with and (suspected) exposure to COVID-19

== ENCOUNTER 2022-08-05 09:22 | Day surgery (SDC) | payer MEDICARE ==
[~2022-08-05] VITALS: Ht 180.3 cm; Wt 83.9 kg
[~2022-08-05 09:22] MED LIST changes: +BSS IRRIG/VANCO(10MG)/TOBRA(5MG)/EPINEPH(1:1000-0.5CC)500ML BAG-ORONLY IR ONE; +CEFUROXIME 1MG/0.1ML INTRACAMERAL INJ As Ordered ONE; +CYCLOPENTOLATE 1% OPHTH SOLN 2ML BTL OS SCH; +LIDOCAINE 1% SDV 5ML VIAL As Ordered ONE; +LIDOCAINE 3.5 % 1ML OPHTH TOPICAL GEL OU ONE; +OFLOXACIN 0.3 % (OCUFLOX) OPTH SOL 5ML OS ONE; +PHENYLEPHRINE 10% OPHTH SOL 5ML OS PRN; +PHENYLEPHRINE 2.5% OPHTH SOL 2ML OS SCH; +TROPICAMIDE 1% OPHTH SOLN 15ML OS SCH
[2022-08-05 09:56] LABS: INR 1.79; PROTHROMBIN TIME 21.1 SECONDS (12.5-14.5)
[2022-08-05 09:57] LABS: PARTIAL THROMBOPLASTIN TIME 32.5 SECONDS (24.8-34.2)
[2022-08-05] MEDS ORDERED: MIDAZOLAM INJ 2MG/2ML VIAL As Ordered ONE (10:21)
[2022-08-05] MEDS ORDERED: fentaNYL 100 MCG/2 ML INJECTION As Ordered ONE (10:21)
[2022-08-05 10:33] VITALS: BP 115/74
== END 2022-08-05 11:21 | disposition home or self-care (01) ==
LOC: M SDC 09:22
PROVIDERS: ATTEND Ophthalmology
DX: H25.12 Age-related nuclear cataract, left eye (principal); I48.91 Unspecified atrial fibrillation; I10 Essential (primary) hypertension; Z86.16 Personal history of COVID-19; Z86.711 Personal history of pulmonary embolism; Z79.899 Other long term (current) drug therapy; Z79.01 Long term (current) use of anticoagulants
CPT/HCPCS: 36415; 66984; 85610; 85730; J0697; J2250; J3010; V2632

== ENCOUNTER → 2022-08-14 | Outpatient (CLI) | payer MEDICARE ==
[~2022-08-14] MED LIST changes: -BSS IRRIG/VANCO(10MG)/TOBRA(5MG)/EPINEPH(1:1000-0.5CC)500ML BAG-ORONLY IR ONE; -CEFUROXIME 1MG/0.1ML INTRACAMERAL INJ As Ordered ONE; -CYCLOPENTOLATE 1% OPHTH SOLN 2ML BTL OS SCH; -LIDOCAINE 1% SDV 5ML VIAL As Ordered ONE; -LIDOCAINE 3.5 % 1ML OPHTH TOPICAL GEL OU ONE; -OFLOXACIN 0.3 % (OCUFLOX) OPTH SOL 5ML OS ONE; -PHENYLEPHRINE 10% OPHTH SOL 5ML OS PRN; -PHENYLEPHRINE 2.5% OPHTH SOL 2ML OS SCH; -TROPICAMIDE 1% OPHTH SOLN 15ML OS SCH
== END ==
LOC: M LABSMTC 10:34
PROVIDERS: ATTEND Anesthesiology
DX: Z20.828 Contact with and (suspected) exposure to other viral communicable diseases (principal)

== ENCOUNTER 2022-08-19 08:28 | Day surgery (SDC) | payer MEDICARE ==
[~2022-08-19] VITALS: Ht 180.3 cm; Wt 73.5 kg
[~2022-08-19 08:28] MED LIST changes: +BSS IRRIG/VANCO(10MG)/TOBRA(5MG)/EPINEPH(1:1000-0.5CC)500ML BAG-ORONLY IR ONE; +CEFUROXIME 1MG/0.1ML INTRACAMERAL INJ As Ordered ONE; +CYCLOPENTOLATE 1% OPHTH SOLN 2ML BTL OD SCH; +LIDOCAINE 1% SDV 5ML VIAL As Ordered ONE; +LIDOCAINE 3.5 % 1ML OPHTH TOPICAL GEL OU ONE; +MIDAZOLAM INJ 2MG/2ML VIAL As Ordered ONE; +OFLOXACIN 0.3 % (OCUFLOX) OPTH SOL 5ML OD ONE; +PHENYLEPHRINE 10% OPHTH SOL 5ML OD PRN; +PHENYLEPHRINE 2.5% OPHTH SOL 2ML OD SCH; +TROPICAMIDE 1% OPHTH SOLN 15ML OD SCH; +fentaNYL 100 MCG/2 ML INJECTION As Ordered ONE
[2022-08-19 09:21] LABS: INR 1.43; PROTHROMBIN TIME 17.7 SECONDS (12.5-14.5)
[2022-08-19] MEDS ORDERED: IPRATROPIUM 0.5MG/ALBUTEROL 2.5MG INH SOL UD 3ML (DUONEB) NEB ONE (09:35)
[2022-08-19 10:25] VITALS: BP 123/74
== END 2022-08-19 10:45 | disposition home or self-care (01) ==
LOC: M SDC 08:28
PROVIDERS: ATTEND Ophthalmology
DX: H25.11 Age-related nuclear cataract, right eye (principal); I48.91 Unspecified atrial fibrillation; I10 Essential (primary) hypertension; K21.9 Gastro-esophageal reflux disease without esophagitis; J45.998 Other asthma; Z86.711 Personal history of pulmonary embolism; Z79.01 Long term (current) use of anticoagulants; Z79.51 Long term (current) use of inhaled steroids; Z79.899 Other long term (current) drug therapy
CPT/HCPCS: 36415; 66984; 85610; J0697; J2250; J3010; V2632